=== PATIENT | female | born 1950 ===

== ENCOUNTER 2022-04-18 15:26 | Inpatient (IN) | payer OTHER ==
[~2022-04-18] VITALS: Ht 157.5 cm; Wt 89.4 kg
[2022-04-25] MEDS ORDERED: IRBESARTAN-HCT1 EAC1 PO (11:08)
[2022-04-25] MEDS ORDERED: METFORMIN HCL500 M3 PO (11:08)
[2022-04-25] MEDS ORDERED: TOPROL XL100 M1 PO (11:09)
[2022-04-25] MEDS ORDERED: ZESTRIL20 MG PO (11:09)
[2022-04-25] MEDS ORDERED: AMLODIPINE BESY10 MG PO (11:09)
[2022-04-25] MEDS ORDERED: NEURONTIN800 MG PO (11:10)
[2022-05-02] MEDS ORDERED: ELIQUIS2.5 MG PO (17:55)
[2022-05-02] MEDS ORDERED: PERCOCET 5-3251 EACH PO (17:55)
[2022-05-02] MEDS ORDERED: DUI500 PO (17:55)
== END 2022-05-02 21:09 | DRG 470 ==
LOC: O/R 04-30 05:25 → SURG 04-30 05:25
PROVIDERS: ADMIT Orthopaedic Surgery; ATTEND Orthopaedic Surgery
PROC: 0SR90JZ Replacement of Right Hip Joint with Synthetic Substitute, Open Approach (ICD-10-PCS; principal; 2022-04-30 10:15)
DX: M16.11 Unilateral primary osteoarthritis, right hip (principal); D62 Acute posthemorrhagic anemia; M25.751 Osteophyte, right hip; M70.61 Trochanteric bursitis, right hip; E66.8 Other obesity; I10 Essential (primary) hypertension; Z96.641 Presence of right artificial hip joint; Z20.822 Contact with and (suspected) exposure to COVID-19

== ENCOUNTER 2024-05-17 08:15 | Inpatient (IN) | payer OTHER ==
[~2024-05-17] VITALS: Ht 152.4 cm; Wt 93.0 kg
[~2024-05-17 08:15] MED LIST: AMLODIPINE BESY10 MG PO; DUI500 PO; ELIQUIS2.5 MG PO; IRBESARTAN-HCT1 EAC1 PO; METFORMIN HCL500 M3 PO; NEURONTIN800 MG PO; PERCOCET 5-3251 EACH PO; TOPROL XL100 M1 PO; ZESTRIL20 MG PO
[2024-05-17] MEDS ORDERED: LIPITOR40 MG PO (10:55)
[2024-05-17 11:04] VITALS: BP 160/100
[2024-05-17 11:47] LABS: HEMATOCRIT 34.8 % (36.0-45.00); HEMOGLOBIN 12.1 g/dL (12.0-15.00); MEAN CELL VOLUME 95.9 fL (80.00-100.00); MEAN CORPUSCULAR HEMOGLOBIN 33.3 pg (27.00-32.0); MEAN CORPUSCULAR HGB CONC 34.8 g/dl (32.0-36.0); PLATELET COUNT 271 K/uL (150-450); RED BLOOD COUNT 3.63 M/uL (4.00-6.00); RED CELL DISTRIBUTION WIDTH 14.2 % (11.5-14.5)
[2024-05-17 11:56] LABS: URINE APPEARANCE Clear; URINE BILIRRUBIN Negative (NEGATIVE); URINE BLOOD Negative; URINE COLOR Yellow; URINE GLUCOSE Negative (NEGATIVE); URINE KETONE Negative (NEGATIVE); URINE LEUKOCYTE Trace; URINE NITRATE Negative; URINE PROTEIN Negative (NEGATIVE); URINE UROBILINOGEN 0.2 E.U./dl
[2024-05-17 12:00] LABS: URINE BACTERIA 210.2 uL (0.0-1933); URINE EPITHELIAL CELLS 4.4 uL (0.0-38.8); URINE WBC 37.5 uL (0.0-23.2)
[2024-05-17 12:09] LABS: COVID-19 AG NEGATIVE (NEGATIVE)
[2024-05-17 12:12] LABS: URINE RBC 1.7 uL (0.0-20.8)
[2024-05-17 12:14] LABS: INR 1.03; PARTIAL THROMBOPLASTIN TIME 27.9 SECONDS (22.0-34.0); PROTHROMBIN TIME 11.2 SECONDS (9.0-11.5)
[2024-05-17 12:30] LABS: ALBUMIN 3.9 gm/dL (3.4-5.0); BILIRUBIN TOTAL 0.55 mg/dL (0.3-1.2); CALCIUM 9.3 mg/dL (8.5-10.1); CHOL HDL RATIO 2.9 (0-5.0); CREATININE SERUM 0.89 mg/dL (0.55-1.02); GLOBULINA 4.3 G/DL (2.4-3.5); POTASSIUM 4.26 mEq/L (3.5-5.1); TOTAL PROTEIN 8.2 gm/dL (6.4-8.2)
[2024-05-17 13:08] LABS: RH POSITIVE
[2024-05-25] MEDS ORDERED: VANCOMYCIN HCL 1,000 MG VIAL ONE ×2 (10:37→14:52)
[2024-05-25] MEDS ORDERED: TRANEXAMIC ACID 100MG/1ML (1000MG) AMPUL IV ONE (10:38)
[2024-05-25] MEDS ORDERED: ISOPROPYL ALCOHOL 30 ML OUNCE TOP ONE (13:14)
[2024-05-25] MEDS ORDERED: INSULIN LISPRO 1,000 UNIT/10 ML UNITS SUBCUTANEO PRN (15:15)
[2024-05-25] MEDS ORDERED: ENALAPRILAT DIHYDRATE 2.5 MG/2 ML VIAL IV PRN (15:15)
[2024-05-25] MEDS ORDERED: DEXTROSE 50 % IN WATER 0.5 G/ML DISP.SYRIN IV PRN (15:15)
[2024-05-25] MEDS ORDERED: KETOROLAC TROMETHAMINE 60 MG VIAL IM ONE ×2 (15:16→16:00)
[2024-05-25] MEDS ORDERED: BUPIVACAINE HCL/MPF 0.5% 30ML VIAL ONE (15:16)
[2024-05-25] MEDS ORDERED: LIDOCAINE HCL 1%/EPINEPHRINE 20ML VIAL IJ ONE (15:16)
[2024-05-25] MEDS ORDERED: ENALAPRILAT DIHYDRATE 1.25 MG/ML VIAL IV PRN (15:45)
[2024-05-25] MEDS ORDERED: BUPIVACAINE HCL 30 ML VIAL IJ ONE (16:00)
[2024-05-25] MEDS ORDERED: LIDOCAINE HCL 1% 20 ML VIAL IJ ONE (16:00)
[2024-05-25] MEDS ORDERED: MORPHINE SULFATE 4 MG/ML VIAL IV ONE ×3 (16:00→18:10)
[2024-05-25] MEDS ORDERED: POVIDONE-IODINE 118 ML BOTT TOP ONE ×2 (16:11→16:30)
[2024-05-25] MEDS ORDERED: VANCOMYCIN HCL 1,000 MG VIAL IR ONE (16:15)
[2024-05-25] MEDS ORDERED: METOPROLOL SUCCINATE 50 MG TAB.SR.24H PO SCH (17:00)
[2024-05-25] MEDS ORDERED: OxyCODONE HCL 5 MG TABLET (ROXICODONE) PO PRN (18:45)
[2024-05-25] MEDS ORDERED: ONDANSETRON HCL 2 MG/ML VIAL IV PRN (18:45)
[2024-05-25] MEDS ORDERED: SODIUM CHLORIDE 0.45 % 1,000 ML IV SCH (18:45)
[2024-05-25 20:52] VITALS: BP 152/89; O2SAT 98
[2024-05-26] MEDS ORDERED: ACETAMINOPHEN 500 MG GEL..CAP PO SCH
[2024-05-26 00:23] VITALS: BP 157/82; O2SAT 98
[2024-05-26] MEDS ORDERED: CEFAZOLIN SODIUM 1,000 MG VIAL IV SCH (01:00)
[2024-05-26] MEDS ORDERED: GABAPENTIN 300 MG CAPSULE PO SCH (01:00)
[2024-05-26 06:28] LABS: HEMATOCRIT 33.1 % (36.0-45.00); HEMOGLOBIN 11.5 g/dL (12.0-15.00); MEAN CORPUSCULAR HEMOGLOBIN 33.7 pg (27.00-32.0); MEAN CORPUSCULAR HGB CONC 34.7 g/dl (32.0-36.0); PLATELET COUNT 283 K/uL (150-450); RED BLOOD COUNT 3.41 M/uL (4.00-6.00); RED CELL DISTRIBUTION WIDTH 13.8 % (11.5-14.5)
[2024-05-26] MEDS ORDERED: TRAM1TAB98 PO (07:57)
[2024-05-26] MEDS ORDERED: DUI500 PO (07:57)
[2024-05-26] MEDS ORDERED: DICLOFENAC SODI75 MG PO (07:57)
[2024-05-26 08:47] VITALS: BP 174/83; O2SAT 95
[2024-05-26] MEDS ORDERED: SENNOSIDES 1 TAB TABLET PO SCH (09:00)
[2024-05-27] MEDS ORDERED: IRON FUM,PS/FOLIC ACID/VITC/B3 1 CAP CAPSULE PO SCH (09:00)
== END 2024-05-26 10:57 | disposition home or self-care (01) | DRG 483 ==
LOC: O/R 05-25 05:15 → SURH 05-25 08:15 → SURG 05-25 18:11 → SURH 05-25 23:30 → SURG 05-26 10:57 → SURH 05-27 08:15
PROVIDERS: ADMIT Orthopaedic Surgery; ATTEND Orthopaedic Surgery
PROC: 0LS30ZZ Reposition Right Upper Arm Tendon, Open Approach (ICD-10-PCS; 2024-05-25)
PROC: 0PUC0JZ Supplement Right Humeral Head with Synthetic Substitute, Open Approach (ICD-10-PCS; 2024-05-25)
PROC: 0RRJ00Z Replacement of Right Shoulder Joint with Reverse Ball and Socket Synthetic Substitute, Open Approach (ICD-10-PCS; principal; 2024-05-25 23:30)
DX: M19.011 Primary osteoarthritis, right shoulder (principal); M75.121 Complete rotator cuff tear or rupture of right shoulder, not specified as traumatic